=== PATIENT | male | born 1990 | race Caucasian/White ===

== ENCOUNTER 2025-03-09 14:55 | Outpatient (AMB) | payer BC, SELFPAY ==
--- NOTE | 2025-03-09 15:08 | MHC.OFFVIS ---
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 The symptoms began after playing golf, where he experienced weakness and wobbliness in his legs, leading him to seek halfway and hydrate, which gradually improved his condition. He reported a persistent foggy feeling and imbalance, with episodes of tinnitus in the right ear. 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 He has been experiencing pinching sensations on the left side of his chest for the past three weeks, though cardiac evaluations have shown normal heart function. He has been evaluated by multiple specialists, including a neurologist who suggested migraines as a possible cause of his headaches. His primary care physician suspects anxiety as a contributing factor to his symptoms, and he has started treatment for it. [facility] Family History Father Ischemic heart disease Social History Alcohol intake: never Patient Tobacco Use Status: Never used Tobacco Review of Systems Const Denies chills, Denies fatigue, Denies fever(s), Denies frequent falls, Denies weakness, Denies weight gain and Denies weight loss ENT Denies dizziness Card Denies chest pain, Denies leg edema, Denies lightheadedness, Denies palpitations, Denies dyspnea, Denies dyspnea on exertion and Denies orthopnea Resp Denies cough, Denies dyspnea and Denies dyspnea on exertion GI Denies bloating and Denies change in bowel habits Musc Denies muscle weakness, Denies numbness and Denies tingling Neuro Denies dizziness, Denies frequent falls, Denies numbness, Denies tingling and Denies weakness Endo Denies fatigue and Denies palpitations Physical Exam Vital Signs: Last Vital Signs Pulse 60 03/09/25 15:11 BP 120/76 03/09/25 15:11 BMI result Body Mass Index 35.0 Const General: comfortable and no acute distress Orientation/consciousness: patient oriented x3 HEENT Other: Unremarkable Head: Yes normal to inspection Neck Neck: Yes normal visual inspection Chest Chest palpation & inspection: normal inspection of the chest Resp Auscultation: clear to auscultation bilaterally Cardio Palpation: normal PMI Heart sounds: S1 normal heart sound present, S2 normal heart sound present, no gallops, no murmurs and no rubs GI Palpation (GI): Soft to palpation Back/Spine/Pelvis Other: unremarkable Skin General skin exam: no rashes or lesions noted Neuro General: patient oriented x3 Extrem General: Yes normal to inspection Psych Mental Status: mental status grossly normal Office Procedures EKG Details: EKG with sinus rhythm at 60/Min; rightward axis and incomplete right bundle-branch block; [place] [id number]-[id number], Complete Results AMB Urinalysis Automated WC UR Glucose Negative Last Edit by Harini Jeter RN on 03/09/25 11:33 UR Ketone Negative Last Edit by Harini Jeter RN on 03/09/25 11:33 UR Specific Scammon 1.005 Last Edit by Harini Jeter RN on 03/09/25 11:33 UR Blood Negative Last Edit by Harini Jeter RN on 03/09/25 11:33 UR Ph 6.0 Last Edit by Harini Jeter RN on 03/09/25 11:33 UR Protein Negative Last Edit by Harini Jeter RN on 03/09/25 11:33 UR Nitrite Negative Last Edit by Harini Jeter RN on 03/09/25 11:33 UR Leukocytes Negative Last Edit by Harini Jteer RN on 03/09/25 11:33 Assessment & Plan Assessment & Plan (1) Dizziness: Code(s): R42 - Dizziness and giddiness Category: Medical (2) Gait instability: Code(s): R26.81 - Unsteadiness on feet Category: Medical Plan Pertinent studies reviewed in detail. In the echocardiogram, low normal LVEF, 50-55%. Normal diastolic function. Normal right ventricular size and systolic function. No significant valvular disease. In the stress test, he was able to exercise for 17.2 METS on Kane protocol and reached 90% of target heart rate. No anginal symptoms. Hypertensive blood pressure response. Peak reading 210/110 mm Hg. No ischemic changes in the EKG. No arrhythmias. Reported high functional capacity for age. Overall, thought to be normal stress test apart from the hypertensive blood pressure response. In the tilt-table test, there was no clear orthostatic change with blood pressure or heart rate. Thought to be negative test for neurocardiogenic syncope. There was no cardioinhibitory or vasodepressor response. 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 Neck MRA unremarkable. Overall, based on the symptom description as well as above findings there is no obvious cardiac etiology to explain his gait instability and other symptoms. With regard to the low normal LVEF, again unlikely to causing any symptoms. Could be weight related. Main recommendation would be to lose weight as much able and at least go back to his usual baseline in the low 200s. We can recheck an echocardiogram in about 6 months' time to reassess the LVEF for reassurance and to ensure there is no significant decrease. Weight loss would also help with the hypertensive blood pressure response which could sometimes be an indicator of being pre-hypertensive. I reassured him as much able with regard to the test results and overall low suspicion for cardiac etiology for his symptoms. Total time spent including review of pertinent data, counseling, documentation, coordination of care-60 minutes. Orders: Orders CA echo transthoracic complete 6 Months R42 - Dizziness and giddiness Coding Level of Care Code New Pt Level 4 (65744) Complex EM visit Add On G2211 Diagnoses Dizziness R42 Gait instability R26.81 CPT Codes EKG - CPT: 28886-[id number], Complete ([id number])
[2025-03-09 15:11] VITALS: BP 120/76; PULSE 60; BMI 35.0
--- OUTSIDE RECORDS SUMMARY | 2025-03-09 18:49 | XMS_ITS | Data Portability ---
Author Organization [facility] Anabella Razo, [facility] Address [address] [place] [address] Care Team Providers Care Press Tender Long Goods Name Role Phone ESVIN, LIZANDRO Referring Provider [phone] Assessment Encounter Date Assessment Date Assessment LastModified by Organization Details LastModified Time 12/09/2024 12/09/2024 Assessment / Plan Dizziness Symptoms are more consistent with lightheadedness/ presyncope rather than true vertigo. Unlikely to be an inner ear etiology given the nature of symptoms and normal ear exam. Audiogram shows high-frequency sensorineural hearing loss in the right ear but is otherwise normal. Tympanometry is normal. Recommended follow-up with PCP to rule out cardiogenic or vascular causes, including blood pressure and blood flow issues. Discussed that a neurologist may also be involved if the workup is unrevealing. Offered VNG testing to definitively rule out an inner ear cause, but noted it is low yield. The patient will start with PCP follow-up and will contact us to schedule VNG if needed. - R42 Dizziness and giddiness Tinnitus, right ear Correlates with high-frequency SNHL on audiogram. Discussed the likely etiology with the patient. - H93.11 Tinnitus, right ear he should notify me or followup if symptoms worsen or persist, and is otherwise welcome to followup as needed. [email or web address] Not available 12/10/2024 10:06:26 Plan of Treatment Reminders Order Date Submit Date Provider Last Modified By Organization Details Last Modified Time Details Appointments None record ed. Lab None record ed. Referral None record ed. Procedures None record ed. Surgeries None record ed. Imaging None record ed. Medication Orders None record ed. Patient TargetsNo targets recorded. Patient InstructionsNo instructions recorded. Reason for Referral None Reported. Results Created Date Observation Date Name Description Value Unit Range Abnormal Flag Note LastModifiedBy Organization Detail LastModifiedTime 12/13/1912/09/2024 audio gram No observ ation record ed. [email or web address] Not Available 2024 13:43:04 Result Notes None recorded. Procedures Surgical History Date Name Laterality Status Provider Name and Address Organization Details Recorded Time 12/10/19 Audiogram completed Cary Rodriguez MD [address] [place] [address] [address] , [place], [address], [facility] 12/10/2024 10:06:41 12/10/19 Tympanometry (text) completed Cary Rodriguez MD [address] [place] [address] [address] , [place], [address], [facility] 12/10/2024 10:04:51 No Operations of the head or neck completed Cary Rodriguez MD [address] [place] [address], [place], [address], [facility] 12/10/2024 10:04:34 Imaging Results None recorded. Procedure Notes None recorded. Medical Equipment None Reported. Allergies No known drug allergies Medications Name Sig Start Date Stop Date Status Note LastModified by Organization Details LastModified Time benzonatate 200 mg capsule TAKE 1 CAPSULE BY MOUTH THREE TIMES DAILY FOR 5 DAYS active Not Available Not Available No t Available prednisone 20 mg tablet TAKE 1 TABLET BY MOUTH EVERY DAY active Not Available Not Available No t Available fluticasone propionate 50 mcg/actuation nasal spray,suspens ion INSTILL 1 SPRAY IN EACH NOSTRIL EVERY DAY active Not Available Not Available No t Available Vitals Date Recorded Body height Body mass index (BMI) Body weight Provider Name and Address Organization Details Last Updated DateTime 12/09/2024 190.5 cm 34.4 kg/m2 379517.9 g Demetris Martinez [facility] 12/09/2024 08:53:32 Social History Question Answer Notes LastModified by Organizat ion Details LastModified Time Tobacco Smoking Status Never Smoker Demetris olivera [facility] 12/09/2024 08:56:22 Alcohol Use None Information n ot available 12/09/2024 History Of Noise Exposure No Information not available 12/09/2024 Sex: Unknown Functional Status Question Answer Note LastModified by Organizat ion Details LastModified Time Do you use any illicit or recreational drugs? No Information not available 12/09/2024 Do you or have you ever used any other forms of tobacco or nicotine? No [email or web address] Information not available 12/09/2024 Mental Status None recorded. Family History Relationship Description Onset Age of this Age Resolved Age Notes LastModified by Organization Details LastModified Time Father No current problems or disability [email or web address] Not available 12/10 10:04:25 Mother No current problems or disability [email or web address] Not available 12/10 10:04:25 Medical History Condition Response Diabetes N Heart Disease N Asthma/COPD N Hypertension N Past Encounters Encounter ID Performer Location Encounter Start Date Encounter Closed Date Diagnosis/Indication Diagnosis SNOMED-CT Code Diagnosis ICD10 Code Diagnosis IMO Codes Diagnosis Note [id number] Cary Rodriguez MD [facility] [address] [place] [id number] 12/09/2024 09:12:19 12/11/2024 13:17:58 Dizziness 108333014 R42 80708 Tinnitus of right ear 48 58713588 108 H93.11 497173 Hearing lo ss of right ear [id number] H91.91 [id number] Health Concerns Section Related Observation LastModified by Organization Detai ls LastModified Time None Recorded Concern Status LastModified by Organization Details LastModified Time None Recorded Advance Directives Directive None Recorded Payers Insurance Date Sequence Insurance Name Policy Number Policy Tijerina Covered Member ID Tijerina Member ID Guarantor Name 12/09/2024 1 [facility] [id number] Jessica Patel [id number] Notes Date Note Type Note Provider Name and Address Organization Details Recorded Time 12/09/2024 text/html Presents today for evaluation of dizziness. Reports first episode of sudden onset dizziness in mid-September (around 10/01/2024) while playing golf in hot, humid weather. He had consumed alcohol the night before and two alcoholic drinks that day without adequate water, though he did have electrolytes. Describes the sensation as feeling like he was losing balance, but not true vertigo. This was associated with weakness and a rapid heartbeat, which he attributes to panic. He did not lose consciousness and his speech was normal. He went home, rested, and hydrated, and symptoms improved over a couple of days. However, he has had persistent lightheadedness and brain fog since. A second significant episode occurred recently on vacation in [place] after playing golf, where he felt his legs were wobbly and his head felt weird . Since this episode, he has been feeling off every day with brain fog, a sensation of eye twitching, and occasional goosebumps on the right side of his face. He also reports constant tinnitus in his right ear, which he feels has been present for years but worsened after his COVID-19 vaccinations. The tinnitus sometimes subsides for an hour or two but returns with increased loudness. Symptoms improve with rest and lying down, and he feels okay in the morning. Denies significant headaches. Reports occasional feelings of a stuffy head, runny nose, and a sensation that the floor is not level. Recently, for the past two days, he has had a sore throat at night and in the morning with a sensation of post-nasal drip. He saw his primary care physician after the first episode who told him time will heal . Blood work, including for diabetes, was normal. He has a known history of fatty liver, but recent liver function tests were improved. After the most recent episode, he saw his PCP again about a week ago and was prescribed a 6-day course of prednisone and fluticasone nasal spray for the dizziness. He felt significant improvement after the first day of using the nasal spray, but the off feeling returned after exercising again. Cary Rodriguez MD [address] [facility], [place], [address], [facility] 12/10/2024 10:07:10
--- OUTSIDE RECORDS SUMMARY | 2025-03-09 18:49 | XMS_ITS | Clinical Summary ---
Author Organization [facility] Address [address] [place] [address] Phone Care Team Providers Care Workers Compensation Attorney Name Role Phone Rika Enriquez EARLINE Primary Care Provider [phone] Encounters Date Type Department Care Team Description 02/03/2025 11:00 AM EDT Ancillary Procedure [facility] [address] [facility] [address] [place] [address] Palpitations from Last 3 Months Surgical History Surgery Date Site/Laterality Comments OTHER SURGICAL HISTORY 2018 PROCEDURE:ankle left;COMMENT:cosmetic ? Social History Tobacco Use Types Packs/Day Years Used Date Smoking Tobacco: Never Sex and Gender Information Value Date Recorded Sex Assigned at Not on file Legal Sex Male 5:50 PM EST Gender Identity Not on file Sexual Orientation Not on file Obstetrics History Last Filed Vital Signs Vital Sign Reading Time Taken Comments Blood Pressure 118/62 02/03/2025 11:06 AM EDT Pulse - - Temperature - - Respiratory Rate - - Oxygen Saturation - - Inhaled Oxygen Concentration - - Weight 125 kg (275 lb) 02/03/2025 11:06 AM EDT Height 190.5 cm (6' 3 ) 02/03/2025 11:06 AM EDT Body Mass Index 34.37 02/03/2025 11:06 AM EDT Plan of Treatment Health Maintenance Due Date Last Done Comments Hepatitis B Vaccines (1 of 3 - 19+ 3-dose series) 2009 HPV Vaccines (1 - 3-dose SCD M series) 2017 Depression Screening 05/18/2024 COVID-19 Vaccine (2024-2 6 season) 2025 11/03/2020, 10/13/2020 Influenza Vaccine (#1) 2025 HIV Screening 01/31/2025 Social Influencers of Health Screening 01/31/2025 DTaP,Tdap,and Td Vaccines (2 - Td or Tdap) 01/16/2033 01/16/2023 RSV Immunization Adult Patients (1 - 1-dose 75+ series) 2065 Hepatitis C Screening Completed 03/17/2023 HIB Vaccines Aged Out No longer eligi ble based on patient's age to complete this topic Hepatitis A Vaccines Aged Out No long er eligible based on patient's age to complete this topic IPV Vaccines Aged Out No longer eligi ble based on patient's age to complete this topic MMR Vaccines Aged Out No longer eligi ble based on patient's age to complete this topic Meningococcal ACWY Vaccine Aged Out N o longer eligible based on patient's age to complete this topic Meningococcal B Vaccine Aged Out No l onger eligible based on patient's age to complete this topic Pneumococcal Vaccine: Pediatrics (0 to 5 Years) and At-Risk Patients (6 to 49 Years) Aged Out No longer eligible b ased on patient's age to complete this topic RSV Immunization Patients Under 20 months Aged Out No longer eligible b ased on patient's age to complete this topic Varicella Vaccines Aged Out No longer eligible based on patient's age to complete this topic Procedures Procedure Name Priority Date/Time Associated Diagnosis Comments TRANSTHORACIC ECHOCARDIOGRAM (TTE) COMPLETE W/ CONTRAST STAT 02/03/2025 11:38 AM EDT Palpitations from Last 3 Months Results * (ABNORMAL) TRANSTHORACIC ECHOCARDIOGRAM (TTE) COMPLETE W/ CONTRAST (02/03/2025 11:38 AM EDT) LV EDV (A2C) 188 mL CV PACS LV EDV (A4C) 186 mL CV PACS LV Diastolic Volume (BP) 192(A) 62 - 150 mL CV PACS LV ESV (A2C) 93 mL CV PACS LV ESV (A4C) 91 mL CV PACS LV Systolic Volume (BP) 91(A) 21 - 61 mL CV PACS IVSD 0.9 0.6 - 1.0 cm CV PACS LVIDD 5.8 4.2 - 5.8 cm CV PACS LVIDS 3.2 2.5 - 4.0 cm CV PACS LVOT Diameter 2.5 cm CV PACS LVOT Mean Timi 0.6 m/s CV PACS LVOT Mean Grad 2 mmHg CV PACS LVOT Peak VTI 21.9 cm CV PACS LVOT Peak Timi 1.0 m/s CV PACS LVOT Peak Gradient 4 mmHg CV PACS LVPWD 0.9 0.6 - 1.0 cm CV PACS MV E' Tissue Velocity Lateral 17 cm/s CV PACS MV E' Tissue Velocity Septal 11 cm/s CV PACS Ejection Fraction (A2C) 51 % CV PACS Ejection Fraction (A4C) 51 % CV PACS Ejection Fraction (BP) 51 % CV PACS LVOT Area 4.9 cm2 CV PACS LVOT Stroke Volume 107 mL CV PACS Left Atrium Minor Berlin 6.5 cm CV PACS Left Atrium Major Berlin 6.0 cm CV PACS LA Area Sys (A2C) 23 cm2 CV PACS LA Area Sys (A4C) 23 cm2 CV PACS LA Volume (BP) 82 mL CV PACS RA Area 20.0 cm2 CV PACS RA 2D Volume 58 mL CV PACS Aortic Sinus Valsalva 4.1 cm CV PACS Ascending Aorta 3.3 cm CV PACS E Wave Deceleration Time 148 119 - 242 ms CV PACS MV Peak A Timi 0.50 m/s CV PACS MV Peak E Timi 0.90 m/s CV PACS PV Acceleration Time 148 ms CV PACS PV Acceleration Time 148 ms CV PACS RV Diastolic Basal Dimension 3.8 2.5 - 4.1 cm CV PACS RV S' 10 cm/s CV PACS TAPSE 18 mm CV PACS LV ESV Index (A4C) 36 mL/m2 CV PACS LV EDV Index (A4C) 74 mL/m2 CV PACS E/E' Ratio Septal 8 CV PACS E/E' Ratio Averaged 7 CV PACS LVOT Stroke Index 0 mL/m2 CV PACS Relative Wall Thickness ratio 0.30 0.24 - 0.42 CV PACS FS 45 % CV PACS LV Mass 2D 193 96 - 200 g CV PACS Ascending Aorta Index 1.31 cm/m2 CV PACS LVOT flow 294 mL/s CV PACS RA 2D Volume Index 23 18 - 32 mL/m2 CV PACS LVIDD Index 2.31 cm/m2 CV PACS LVIDS Index 1.27 cm/m2 CV PACS E/A Ratio 1.8 0.8 - 2.0 CV PACS E/E' Ratio Lateral 5 CV PACS LV Systolic Volume Index (BP) 0(A) 11 - 31 mL/m2 CV PACS LV Diastolic Volume Index (BP) 0(A) 34 - 74 mL/m2 CV PACS LA Volume Index (BP) 31 mL/m2 CV PACS LV Mass Index 2D 81 50 - 102 g/m2 CV PACS LV EDV Index (A2C) 75 mL/m2 CV PACS LV ESV Index (A2C) 37 mL/m2 CV PACS BSA 2.57 m2 CV PACS Est. RA Pressure 3 mmHg CV PACS LA Volume (A-L) 93 mL CV PACS LA Volume Index (A-L) 37 mL/m2 CV PACS LVOT Cardiac Output 0.0 L/min CV PACS LVOT Cardiac Index 1.7 L/min/m2 CV PACS RV Free Wall Peak S' 10 cm/s CV PACS RA Major Berlin 5.5 cm CV PACS RA Major [place] Index 2.2 2.1 - 2.7 cm/m2 CV PACS MV PHT 43 ms CV PACS LV EF MOD 2C 51 % CV PACS LV EF 4C A-L 54 % CV PACS LV EDV 4C A-L 201 mL CV PACS LV Length Sys (A4C) 8.3 cm CV PACS LV Length Burr (A4C) 9.4 cm CV PACS Left Ventricular Stroke Volume by 2-D Biplane-MOD 101 mL CV PACS Anatomical Region Laterality Modality Ultrasound Narrative 02/06/2025 10:13 AM EDT Left ventricle cavity size is normal. Left ventricle wall thickness is normal. No regional LV wall motion abnormalities noted. Left ventricular systolic function is low normal with an ejection fraction of 50-55%. Right ventricle cavity is normal. Right ventricular systolic function is normal. There is normal left ventricular diastolic function. There is no hemodynamically significant valve disease. Left Ventricle Left ventricle cavity size is upper normal. Wall thickness is normal. Systolic function is low normal with an ejection fraction of 50-55%. There are no regional LV wall motion abnormalities. There is no diastolic dysfunction and normal left atrial pressure. Right Ventricle Right ventricle cavity appears normal. Systolic function is normal. Left Atrium Left atrium cavity size is normal. Right Atrium Right atrium cavity is normal. IVC/SVC Inferior vena cava structure is normal. Mitral Valve Mitral valve structure is normal. There is no regurgitation or stenosis. Tricuspid Valve The leaflets exhibit normal excursion. There is no regurgitation or stenosis. Cannot assess RVSP. Aortic Valve The aortic valve is trileaflet. There is no regurgitation or stenosis. Pulmonic Valve Visualized portions of the pulmonic valve appear normal. There is no regurgitation or stenosis. Ascending Aorta The aortic root is upper normal to minimally dilated for age and body surface area. Ascending aorta is normal in size. Pericardium Pericardium appears normal. There is no pericardial effusion. Study Details Overall the study quality was technically difficult. Definity contrast was given to enhance imaging. Rika PATTEN CV ECHO PROCEDURES Final Resul t from Last 3 Months Insurance [facility] Care Teams Workers Compensation Attorney Relationship Specialty Start Date End Date Rika Enriquez FNP [address] [place] [address] [phone] PCP - General Family Medicine 02/01/25
--- OUTSIDE RECORDS SUMMARY | 2025-03-09 18:49 | XMS_ITS | Encounter Summary ---
Author Organization [facility] Address [address] [facility] [address] [place] [address] Phone Care Team Providers Care Computer Designer Name Role Phone Pcp, Not Required Primary Care Provider Rika Francisco NP Primary Care Provider [phone] Encounter Details Date Type Department Care Team (Latest Contact Info) Description 07/15/2023 Transcribe Orders [facility] 10 [address] 2nd [place] [address] Milan Gruber MD 10 Main [facility] 2 [place] [address] [email or web address] NICHOLS (nonalcoholic steatohepatitis) (Primary Dx) Social History Tobacco Use Types Packs/Day Years Used Date Smoking Tobacco: Never Assessed Education Answer Date Recorded Are you interested in more education? Not on moustapha e 03/17/2023 Are you concerned about learning? Not on file 03/17/2023 No 03/17/2023 No 03/17/2023 Digital Access Answer Date Recorded No 03/17/2023 No 03/17/2023 Reliable internet access at home? Not on file 03/17/2023 Device with a working camera? Not on file Sex and Gender Information Value Date Recorded Sex Assigned at Not on file Legal Sex Male 9:32 PM EDT Gender Identity Not on file Sexual Orientation Not on file documented as of this encounter Plan of Treatment Upcoming Encounters Date Type Department Care Team (Late st Contact Info) Description 06/27/2025 9:15 AM EST Office Visit [facility] 10 [place] [address] Milan Gruber MD [address] [address] [email or web address] documented as of this encounter Results * (ABNORMAL) LFTs (hepatic panel) (07/15/2023 1:52 PM EST) ALKALINE PHOSPHATASE 93 39 - 117 U/L [facility] TOTAL BILIRUBIN 0.4 0.0 - 1.2 mg/dL [facility] DIRECT BILIRUBIN <0.2 0 - 0.3 mg/dL [facility] Bilirubin (Indirect) NOT CALCULATED 0 - 1.5 mg/dL [facility] AST 47(H) 0 - 37 U/L [facility] ALT 54(H) 0 - 40 U/L [facility] TOTAL PROTEIN 7.9 6.5 - 8.0 g/dL [facility] ALBUMIN 4.6 3.9 - 4.8 g/dL [facility] GLOBULIN 3.3 1 - 4.8 g/dL [facility] A/G Ratio 1.39 1.00 - 4.80 RATIO [facility] Blood 07/15/2023 1:52 PM EST 07/15/2023 1:55 PM EST us Milan Gruber MD LAB BLOOD ORDERABLES Final Res ult [facility] 30 [place] [address] documented in this encounter Visit Diagnoses Diagnosis NICHOLS (nonalcoholic steatohepatitis)- Primary Other chronic nonalcoholic liver disease documented in this encounter Care Teams Computer Designer Relationship Specialty Start Date End Date Pcp, Not Required [address] [place] [address] PCP - General 10/05/13 12/11/24 Rika Enriquez NP [address] [place] [address] PCP - General Nurse Practitioner 12/12/24 documented as of this encounter Additional Source Comments The information contained in this document represents components of the legal health record. It is not the complete legal health record.[facility]
--- OUTSIDE RECORDS SUMMARY | 2025-03-09 18:49 | XMS_ITS | Data Portability ---
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 Patient has no sensorineural hearing loss in the left ear. Interestingly he has some high-frequency sensorineural hearing loss and tinnitus in the right ear which is unaffected by this process. There is no other sign of cranial neuropathy. Today I spoke with the patient about the pathophysiology of acoustic neuroma (vestibular schwannoma) and about the fact that this is typically a benign, very slow-growing tumor. We discussed the fact that frequently these tumors grow to a certain size then stop growing. At this point, because we only have one scan, it is difficult to know whether this is a growing tumor or not. We discussed the options of observation versus more active intervention such as stereotactic radiosurgery or surgical removal. In this situation, I typically recommend at least a 6 month period of observation with a follow up MRI scan in order to determine whether this is a growing tumor or not prior to proceeding with more active intervention. We did discuss the fact that patient may experience hearing changes during observation that may or may not be reversible, but even with more active treatment there is still a significant risk of progressive or complete hearing loss. Patient is agreeable with this plan of observation, so we will arrange for a followup MRI scan of the brain and internal auditory canals with gadolinium in 6 months at [facility]. Patient will followup at that time. Patient will contact me with any sudden changes in hearing, changes in facial function, or acute balance disturbance. Today we spent some time talking about his more generalized symptoms of brain fog, intermittent lightheadedness, and headache. It is very unlikely that the symptoms are related to this tiny acoustic neuroma. He has an appointment coming up with his neurologist Dr. Nunes with whom he can speak more about the symptoms. We also discussed the possibility his symptoms could be related to an underlying panic disorder which he can speak with his primary care physician about in more detail. Patient does have chronic nasal congestion and will likely benefit from daily use of fluticasone nasal spray. I instructed him on proper use of this vuki-nld-gxxqetd medication, to be used 2 puffs in both nostrils on a daily basis. Not available 01/19/2025 10:14:42 Plan of Treatment Reminders Order Date Submit Date Provider Last Modified By Organization Details Last Modified Time Details Appointments None recorded. Lab None recorded. Referral None recorded. Procedures None recorded. Surgeries None recorded. Imaging MRI, brain + internal auditory canal, w/wo contrast - MRI, BRAIN + INTERNAL AUDITORY CANAL, W/WO CONTRAST 2024 026 [email or web address] [facility] [address], [place], [address], 5 10:14:35 Medication Orders fluticasone propionate 50 mcg/actuati on nasal spray,suspe nsion 2024 025 [id number], [address] [place], [place], [id number], 5 10:15:25 Patient TargetsNo targets recorded. Patient InstructionsNo instructions recorded. Reason for Referral None Reported. Results Created Date Observation Date Name Description Value Unit Range Abnormal Flag Note LastModifiedBy Organization Detail LastModifiedTime 01/07/20 25 12/09/2024 audio gram No observ ation record ed. [email or web address] Cary benjamin MD [address] [place], [address], 01/19/2025 08:50:44 01/20/2001/17/2025 MRI proce dure (PROC ) No observ ation record ed. [email or web address] Not Available 08/2024 11:22:58 01/20/20 25 01/04/2025 MRI, brain + brain stem, w/o contr ast No observ ation record ed. [email or web address] Not Available 08/2024 11:25:42 Result Notes None recorded. Problems Name Problem SNOMED Code Status Onset Date Resolution Date Notes Provider Name and Address Organization Details Recorded Time Allergic rhinitis 82934677 Active 2024 YISSEL GALLOWAY MD [address] [place] [address],[place] [address], [facility] [place], [address], [facility] 10:07:12 Acoustic neuroma of left vestibular nerve 9948331722730 9101 Active 2024 YISSEL GALLOWAY MD [address] [address], [place], [address], [facility] - [facility] 10:07:36 Tinnitus of right ear 3202760846192 Active 2024 YISSEL GALLOWAY MD [address] [address], [place], [address], [facility] - [facility] 10:07:53 Sensorineur al hearing loss of right ear with normal hearing on left side 9858220256 Active 2024 YISSEL GALLOWAY MD [address] [address], [place], [address], [facility] - [facility] 10:08:07 Problem Notes None recorded. Medical Equipment None Reported. Allergies No known drug allergies Medications Name Sig Start Date Stop Date Status Note LastModified by Organization Details LastModified Time benzonatate 200 mg capsule TAKE 1 CAPSULE BY MOUTH THREE TIMES DAILY FOR 5 DAYS 01/19 completed Not Available Not Available Not Available prednisone 20 mg tablet TAKE 1 TABLET BY MOUTH EVERY DAY 01/19 completed Not Available Not Available Not Available gabapentin 100 mg capsule TAKE 1 CAPSULE BY MOUTH EVERY NIGHT AT BEDTIME active Not Available Not Available No t Available fluticasone propionate 50 mcg/actuati on nasal spray,suspe nsion SPRAY 2 SPRAYS INTRANASS ALLY IN BOTH NOSTRILS EVERY DAY active Not Available Not Available No t Available Vitals Date Recorded Body height Body weight Provider Name and Address Organization Details Last Updated DateTime 01/19/2025 190.5 cm 350465.9 g Alisia Brizuela [place] [facility] 01/19/2025 09:48:37 Social History None recorded. Functional Status None recorded. Mental Status None recorded. Family History Nothing Reported. Medical History Condition Response Liver Disease Y Past Encounters Encounter ID Performer Location Encounter Start Date Encounter Closed Date Diagnosis/Indication Diagnosis SNOMED-CT Code Diagnosis ICD10 Code Diagnosis IMO Codes Diagnosis Note [id number] YISSEL GALLOWAY MD [facility] [address] [address] 01/19/2025 08:42:03 01/19/2025 10:14:35 Allergic rhinitis 46656952 J30.9 [id number] Acoustic n euroma of left vestibular nerve 0501386672 2830820 D33.3 676611 Tinnitus of right ear 48 41268939 108 H93.11 599780 Sensorineu ral hearing loss of right ear with normal hearing on left side 9346849263 H90.41 75420652 Health Concerns Section Related Observation LastModified by Organization Detai ls LastModified Time None Recorded Concern Status LastModified by Organization Details LastModified Time None Recorded Advance Directives Directive None Recorded Payers Insurance Date Sequence Insurance Name Policy Number Policy Tijerina Covered Member ID Tijerina Member ID Guarantor Name 01/19/2025 1 [facility] [place] [id number] Jessica Patel [id number] Patel Notes Date Note Type Note Provider Name and Address Organization Details Recorded Time 01/19/2025 text/html 34-year-old male referred for evaluation of dizziness. Patient was seen by hunter guide in [place] on 12/09/2024. At that visit he reported sudden onset dizziness in mid September while playing golf in hot humid weather. He had consumed alcohol the night before and 2 alcoholic drinks that day without adequate water. He had a sensation of feeling like he was losing balance, but no true vertigo. This was associated with weakness and rapid heartbeat which he attributed to panic. Symptoms subsided over a couple of days. He was reporting persistent lightheadedness and brain fog ever since. He had a second episode also while playing golf in [place]. The senior consumer insights consultant felt that symptoms were most likely secondary to lightheadedness/presyn cope rather than true vertigo, and recommendations were made to primary care to rule out cardiovascular or blood flow issues. VNG was offered but declined. Patient reports that he had subsequent evaluation by Dr. Nunes, neurologist in [place] who ordered MRI scan of the brain and internal auditory canals. This demonstrated a 4 mm LEFT IAC lesion consistent with a small acoustic neuroma. Patient continues to feel low-level sensation of brain fog patient reports another recent episode of symptom exacerbation after playing hockey, he started feeling woozy and off balance, then started having heart palpitations and further exacerbation of dizziness. Patient was evaluated by rabbit dresser at the scene and had normal vitals and normal EKG, so he did not end up going to the hospital for this. Patient reports that he has been having more headaches recently, usually centered around the left zoroastrian. He notices right sided tinnitus which has been present since getting his first COVID shots years ago. The tinnitus in the right ear will fluctuate. This is the opposite ear as his acoustic neuroma. YISSEL GALLOWAY MD [address] [place] [address], [phone], [place] [facility] 01/19/2025 10:15:57
--- OUTSIDE RECORDS SUMMARY | 2025-03-09 18:49 | XMS_ITS | Clinical Summary ---
Author Organization [facility] Address [address] [place] [address] Care Team Providers Care Towel Hemmer Name Role Phone Unavailable Primary Care Provider Unavailabl e Allergies No known active allergies Medications Medication Sig Dispensed Refills Start Date End Date Status oxyCODONE (ROXICODONE) 5 MG immediate release tablet Take 1 tablet (5 mg total) by mouth every 6 (six) hours as needed for pain. Do not take until after surgery 20 tablet 0 03/07/2021 Active aspirin 325 MG EC tablet TAKE 1 TABLET BY MOUTH EVERY DAY 30 tablet 0 03/29/2021 Active Active Problems Problem Noted Date Diagnosed Date Left leg pain 02/20/2021 Achilles tendon tear, left, subsequent encounter 02/20/2021 Social History Tobacco Use Types Packs/Day Years Used Date Smoking Tobacco: Never Sex and Gender Information Value Date Recorded Sex Assigned at Male 02/17/2021 6:48 PM EDT Gender Identity Not on file Sexual Orientation Not on file Job Start Date Occupation Industry Not on file Not on file Not on file Last Filed Vital Signs Vital Sign Reading Time Taken Comments Blood Pressure 118/88 02/20/2021 2:42 PM EDT Pulse 102 02/20/2021 2:42 PM EDT Temperature 36.3 C (97.3 F) 02/20/2021 2:42 PM EDT Respiratory Rate 20 02/17/2021 5:48 PM EDT Oxygen Saturation 98% 02/20/2021 2:42 PM EDT Inhaled Oxygen Concentration - - Weight 120.7 kg (266 lb) 06/03/2021 8:27 AM EST Height 193 cm (6' 4 ) 06/03/2021 8:27 AM EST Body Mass Index 32.38 06/03/2021 8:27 AM EST Plan of Treatment Health Maintenance Due Date Last Done Comments Hepatitis B Vaccines (1 of 3 - 3-dose series) 1990 Hepatitis C Screening 1990 COVID-19 Vaccine (#1) 04/07/1991 Depression Screening 2002 Preventative Health Evaluation 2008 DTap / Tdap / Td (1 - Tdap) 2009 BMI Counseling 03/04/2022 03/04/2021, 02/20/2021 Influenza Vaccine (#1) 2025 Pneumococcal Vaccine Aged Out No long er eligible based on patient's age to complete this topic RSV Ped < 20 months Aged Out No longe r eligible based on patient's age to complete this topic
--- OUTSIDE RECORDS SUMMARY | 2025-03-09 18:49 | XMS_ITS | Encounter Summary ---
Author Organization [facility] Address [address] [address] [place] [address] Phone Care Team Providers Care Stamp Press Operator Name Role Phone Pcp, Not Required Primary Care Provider Rika Francisco NP Primary Care Provider [phone] Encounter Details Date Type Department Care Team (Latest Contact Info) Description 03/17/2023 Transcribe Orders [facility] [address] 2nd [place] [address] Milan Gruber MD 10 Main [facility] 2 [place] [address] [email or web address] NICHOLS (nonalcoholic steatohepatitis) (Primary Dx) Social History [...] Description 06/27/2025 9:15 AM EST Office Visit [facility] 10 [place] [address] Milan Gruber MD [address] [address] [email or web address] documented as of this encounter Results * (ABNORMAL) PT-INR (03/17/2023 1:49 PM EDT) PT 13.2(H) 10.2 - 12.9 sec [facility] INR 1.1 0.9 - 1.1 [facility] Comment:Therapeutic range fo r oral Vitamin K antagonists: 2.0-3.5 Blood 03/17/2023 1:49 PM EDT 03/17/2023 1:55 PM EDT us Milan Gruber MD LAB BLOOD ORDERABLES Final Res ult [address] [address] * Ferritin (03/17/2023 1:49 PM EDT) Pathologist [facility] FERRITIN 323 30 - 400 ug/L [facility] Blood 03/17/2023 1:49 PM EDT 03/17/2023 1:55 PM EDT Milan Gruber MD LAB BLOOD ORDERABLES Final Res ult [address] [address] * Hepatitis C antibody, qualitative (03/17/2023 1:49 PM EDT) HCV NON-REACTIV E NON-REACTI VE [facility] Blood 03/17/2023 1:49 PM EDT 03/17/2023 1:55 PM EDT us Milan Gruber MD LAB BLOOD ORDERABLES Final Res ult Performing Organization Address City/[facility]/ZIP Co de Phone Number [address] [address] * Hepatitis B surface antibody (03/17/2023 1:49 PM EDT) HBV SURFACE ANTIBODY Negative [facility] Comment: Unvaccinated: Negative Vaccinated: Positive Blood 03/17/2023 1:49 PM EDT 03/17/2023 1:55 PM EDT us Milan Gruber MD LAB BLOOD ORDERABLES Final Res ult Performing Organization Address [facility] Co de Phone Number [address] [address] * Hepatitis B surface antigen (03/17/2023 1:49 PM EDT) Pathologist [facility] HBV SURFACE ANTIGEN NON-REACTI VE NON-REACTI VE [facility] Blood 03/17/2023 1:49 PM EDT 03/17/2023 1:55 PM EDT us Milan Gruber MD LAB BLOOD ORDERABLES Final Res ult Performing Organization Address [facility]/ZIP Co de Phone Number [address] [address] * (ABNORMAL) Comprehensive metabolic panel (03/17/2023 1:49 PM EDT) SODIUM 138 133 - 146 mmol/L [facility] POTASSIUM 4.1 3.3 - 5.1 mmol/L [facility] CHLORIDE 101 96 - 108 mmol/L [facility] CO2 26 21 - 35 mmol/L [facility] BUN 12 6 - 19 mg/dL [facility] CREATININE 1.00 0.5 - 1.5 mg/dL [facility] GLUCOSE 81 70 - 99 mg/dL [facility] ALBUMIN 4.7 3.9 - 4.8 g/dL [facility] TOTAL PROTEIN 7.6 6.5 - 8.0 g/dL [facility] CALCIUM 9.7 8.4 - 10.3 mg/dL [facility] ALKALINE PHOSPHATASE 83 39 - 117 U/L [facility] TOTAL BILIRUBIN 0.5 0.0 - 1.2 mg/dL [facility] AST 36 0 - 37 U/L [facility] ALT 68(H) 0 - 40 U/L [facility] GLOBULIN 2.9 1 - 4.8 g/dL [facility] EGFR 103 >59 mL/min/1.7 3m2 [facility] Comment:Estimated glomerular filtration rate calculated using the CKD-EPI refit equation. ANION GAP 15 10 - 20 mmol/L [facility] Blood 03/17/2023 1:49 PM EDT 03/17/2023 1:55 PM EDT us Milan Gruber MD LAB BLOOD ORDERABLES Final Res ult Performing Organization Address City/State/[facility] Co de Phone Number [address] [address] * CBC (03/17/2023 1:49 PM EDT) WBC 5.44 4.00 - 11.00 K/uL [facility] RBC 4.93 4.23 - 5.82 M/uL [facility] HGB 14.7 13.4 - 17.5 g/dL [facility] HCT 43.8 37.0 - 51.0 % [facility] PLT 215 140 - 430 K/uL [facility] MCV 88.8 78.0 - 97.0 fL [facility] MCH 29.8 25.0 - 33.0 pg [facility] MCHC 33.6 32.0 - 36.0 g/dL [facility] RDW 12.3 11.0 - 15.0 % [facility] MPV 10.4 8.4 - 12.8 fl [facility] Blood 03/17/2023 1:49 PM EDT 03/17/2023 1:55 PM EDT Milan Gruber MD LAB BLOOD ORDERABLES Final Res ult Performing Organization Address [facility]/ZIP Co de Phone Number [address] [address] * Tissue transglutaminase IgA (03/17/2023 1:49 PM EDT) TTG IGA ANTIBODY <1.2 <4.0 (Negative) U/mL [facility] Blood 03/17/2023 1:49 PM EDT 03/17/2023 1:56 PM EDT Milan Gruber MD LAB BLOOD ORDERABLES Final Res ult Performing Organization Address [facility] Co de Phone Number [facility] [address] [place] [address] * Smooth Muscle Antibody (03/17/2023 1:49 PM EDT) SMOOTH MUSCLE AB POSITIVE AT 1:20 [facility] Comment: Chioma Isbell M.D., Director Clinical Immunology Laboratory [id number] Normal: Negative at 1:20 Blood 03/17/2023 1:49 PM EDT 03/17/2023 1:56 PM EDT Milan Gruber MD LAB BLOOD ORDERABLES Final Res ult Performing Organization Address [facility]/ZIP Co de Phone Number [address] [address] * Antinuclear antibody (TARUN) (03/17/2023 1:49 PM EDT) TARUN SCREEN ON HEP 2 Negative Negative [facility] Blood 03/17/2023 1:49 PM EDT 03/17/2023 1:55 PM EDT Milan Gruber MD LAB BLOOD ORDERABLES Final Res ult Performing Organization Address City/[facility]/ZIP Co de Phone Number [address] [address] * Csnwv-9-bzqcmnevxzm phenotyping (03/17/2023 1:49 PM EDT) ALPHA 1 ANTITRYPSIN 122 100 - 190 mg/dL [facility] Comment: (NOTE) ADDITIONAL INFORMATION Method: Nephelometry A1A PHENOTYPE MM bands [place] [facility] Comment: (NOTE) A single M isoform is detected. In the context of a normal umsnl-6-pswegmbivxb concentration, this is consistent with an MM phenotype. ADDITIONAL INFORMATION Method: Isoelectric Focusing, This assay identifies the phenotype of the circulating cpuyc-5-bntirjiznme (A1A) protein. If the patient is on replacement therapy or has been recently transfused, the phenotype will detect patient and replacement or transfused plasma A1A protein. This test also cannot detect a null allele which could be responsible for an A1A deficiency. Blood 03/17/2023 1:49 PM EDT 03/17/2023 1:56 PM EDT us Milan Gruber MD LAB BLOOD ORDERABLES Final Res ult [facility] [address] [place] [address] documented in this encounter Visit Diagnoses Diagnosis NICHOLS (nonalcoholic steatohepatitis)- Primary Other chronic nonalcoholic liver disease documented in this encounter Care Teams Stamp Press Operator Relationship Specialty Start Date End Date Pcp, Not Required [address] [place] [address] PCP - General 10/05/13 12/11/24 Riak Enriquez NP [address] [place] [address] PCP - General Nurse Practitioner 12/12/24 documented as of this encounter Additional Source Comments The information contained in this document represents components of the legal health record. It is not the complete legal health record.[facility]
--- OUTSIDE RECORDS SUMMARY | 2025-03-09 18:49 | XMS_ITS | Clinical Summary ---
Author Organization [facility] Address [address] [place] [address] Phone Care Team Providers Care Laser Systems Engineer Name Role Phone Rika Enriquez NP Primary Care Provider [phone] Allergies No known active allergies Encounters Date Type Department Care Team Description 02/02/2025 2:30 PM EDT - 02/02/2025 11:59 PM EDT Hospital Encounter Non-Invasive Cardiology [address] [place] [address] Rika Enriquez NP Discharge Disposition: Home or Self Care 01/30/2025 [facility] [address], [address] [place] [address] Rika Enriquez NP POTS (postural orthostatic tachycardia syndrome) (Primary Dx) from Last 3 Months Social History Tobacco Use Types Packs/Day Years [...] on file Sexual Orientation Not on file Last Filed Vital Signs Vital Sign Reading Time Taken Comments Blood Pressure 142/76 02/02/2025 3:04 PM EDT Pulse - - Temperature - - Respiratory Rate - - Oxygen Saturation 99% 02/02/2025 2:00 PM EDT Inhaled Oxygen Concentration - - Weight - - Height - - Body Mass Index - - Plan of Treatment Upcoming Encounters Date Type Department Care Team (Late st Contact Info) Description 06/27/2025 9:15 AM EST Office Visit [facility] [address] [place] [address] Milan Gruber MD [address] [id number] [email or web address] Due Date Last Done Comments DEPRESSION SCREENING 2002 SMOKING Hx and SMOKELESS TOBACCO SCREENING 10/06/2003 INFLUENZA VACCINE (#1) 2024 COVID-19 VACCINE (3 2024-2 6 season) 2025 11/03/2020, 10/13/2020 Adult Td,Tdap Booster 01/16/2033 01/16/2023 HIV ONE-TIME SCREENING (18-6 5 YEARS) Completed 2013 HEPATITIS C SCREENING Completed 03/17/2023 HEPATITIS A VACCINES Aged Out No long er eligible based on patient's age to complete this topic HIB VACCINES Aged Out No longer eligi ble based on patient's age to complete this topic MENINGOCOCCAL VACCINES (ACWY) Aged Out No longer eligible based on patient's age to complete this topic MENINGOCOCCAL VACCINES (B) Aged Out N o longer eligible based on patient's age to complete this topic PNEUMOCOCCAL VACCINES (0-49 years) Aged Out No longer eligible b ased on patient's age to complete this topic Medical Devices Not on file Procedures Procedure Name Priority Date/Time Associated Diagnosis Comments STRESS TEST EXERCISE Routine 02/02/2025 3:10 PM EDT POTS (postural orthostatic tachycardia syndrome) HEPATITIS C ANTIBODY, QUALITATIVE Routine 03/17/2023 1:49 PM EDT NICHOLS (nonalcoholic steatohepatitis) from Last 3 Months or Most Recently Relevant to Health Maintenance Results * STRESS TEST EXERCISE (02/02/2025 3:10 PM EDT) Max Predicted Heart Rate 186 bpm Anatomical Region Laterality Modality Heart Ultrasound Narrative 02/09/2025 3:01 PM EDT ECG Pt exercised for 13:00 min on a AGUILAR protocol achieving 17.2 METS. Test terminated due to fatigue. Baseline resting HR was 54 bpm. Max heart rate achieved was 184 bpm (90% MPHR). 1. EKG - Baseline EKG showed sinus bradycardia. During exercise there were no ischemic EKG changes that meet strict criteria. 2. SYMPTOMS -No chest pain 3. EXERCISE PHYSIOLOGY -High functional capacity for age. BP 110/82 at rest, BP 210/110 during exercise, BP 142/76 on discharge from stress lab. 4. ARRHYTHMIAS -None Conclusion -Normal stress test without EKG changes suggestive for ischemia. There were no reported symptoms concerning for angina. Hypertensive response to exercise. See attached stress report for full details. Makeda Solis, ANGIE Rika Enriquez NP CV STRESS ORDERABLES Final Re sult * Hepatitis C antibody, qualitative (03/17/2023 1:49 PM EDT) HCV NON-REACTIV E NON-REACTI VE [facility] Blood 03/17/2023 1:49 PM EDT 03/17/2023 1:55 PM EDT us Milan Gruber MD LAB BLOOD ORDERABLES Final Res ult [facility] [address] [place] [address] from Last 3 Months or Most Recently Relevant to Health Maintenance Insurance [facility] [place] [address] [place] [address] [facility] [place] [address] [place] [address] [place] [address] [facility] Care Teams Laser Systems Engineer Relationship Specialty Start Date End Date Rika Enriquez NP [address] [place] [phone] PCP - General Nurse Practitioner 12/12/24 Additional Source Comments The information contained in this document represents components of the legal health record. It is not the complete legal health record.[facility]
== END 2025-03-09 15:49 | disposition home or self-care (01) ==
LOC: HO.HCS 14:56
PROVIDERS: PCP Optometrist; Visit Provider Internal Medicine
DX: R42 Dizziness and giddiness (principal); R26.81 Unsteadiness on feet
CPT/HCPCS: 93010; 99204

== ENCOUNTER → 2025-03-09 14:55 | Outpatient (BNVA) | payer BC, SELFPAY | PROVIDERS: PCP Optometrist; Visit Provider Internal Medicine | DX: R42 Dizziness and giddiness (principal) | CPT/HCPCS: 93005 ==